=== PATIENT | male | born 1955 | race Caucasian/White ===

== ENCOUNTER 2016-09-29 16:19 | Outpatient (CLI) | payer OTHER ==
[2016-02-18 11:43] VITALS: BP 133/80
== END 2016-09-29 16:20 ==
LOC: LABRHC 16:19
PROVIDERS: ATTEND Physician Assistant
DX: L85.8 Other specified epidermal thickening (principal)

== ENCOUNTER 2017-03-25 10:39 | Outpatient (CLI) | payer OTHER ==
[2016-02-18 11:43] VITALS: BP 133/80
--- NOTE | 2017-03-26 09:38 | OP Clinic Progress Note ---
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 There is some discharge from the ear that is pasty. Sometimes it aches. He has flushed his own ears several times. He also takes Claritin D and that seems to alleviate some of the pain and pressure in the right ear. The left eardrum and ear canal are fairly clear. The right ear is not full of debris but there is a diffuse otitis externa. It is principally a lateral one- half of the ear canal otitis externa. Under a microscope, I debrided and cleaned this. Also under the microscope, even though there was a thin film of debris on the eardrum, I did not see any fluid in the middle ear. Several issues pertain in this patient. He does have an otitis externa and under the microscope, after debriding and cleaning, I put antifungal lotion, Lotrisone lotion, in the ear to fill it up and leave it in for 48 hours. This will be the first step. Depending upon how well that improves him over the next 2 weeks, I would recommend a variety of different types of drops but I would wait to see how he responds to the treatment of today. In this regard, the patient politely and courteously said he really probably would have a very hard time making it. He says he works 10 hours a day, 5 days a week and felt it would be very difficult to get off. A separate issue is a history of extremely loud snoring. He volunteered even before treatment that he sleeps in a separate room than his , again, secondary to some very loud snoring. He does not have much of a headache. However, he does take the Claritin D. He does note that he has essential hypertension. I pointed out the counter opposing effects of the Sudafed that is in the D- portion of the Claritin and his hypertension, for which he takes medication by history. I repeated that information to the patient 3 times and told him that it is fine to take the Claritin but my recommendation would be not to take the decongestant (the D-portion). PLAN: I encouraged the patient to find time to come back. Although the ear canal is much rug cleaner and I think probably he does need to ongoing treatment. It would be difficult to say exactly what direction to go until I see the response to the treatment of today. Patient understands these issues and will do his best to try to get a follow up but he has indicated that he feels it will be very difficult. Additionally, I pointed out if he does have sleep apnea, he needs to consider a sleep study and potentially a CPAP, as probably his extremely loud snoring contributes in part to his hypertension. cc: ANGELI Trivedi
== END 2017-03-25 10:41 ==
LOC: ENT 10:39
PROVIDERS: ATTEND Otolaryngology
DX: H60.93 Unspecified otitis externa, bilateral (principal)
CPT/HCPCS: 69220